=== PATIENT | female | born 1975 | race African-American/Black ===

== ENCOUNTER 2019-06-06 12:03 | Emergency (ER) | payer MEDICAID, MEDICARE ==
[~2019-06-06] VITALS: Ht 182.9 cm; Wt 90.0 kg
[2019-06-06 14:30] VITALS: BP 154/91
[2019-06-06] MEDS ORDERED: SODIUM CHLORIDE 0.9% 1,000 ML IV ONE (16:09)
[2019-06-06] MEDS ORDERED: ONDANSETRON HCL 4MG/2ML INJ IV ONE (16:15)
== END 2019-06-06 16:23 | disposition left against medical advice (07) ==
LOC: ER 12:03
DX: Z53.21 Procedure and treatment not carried out due to patient leaving prior to being seen by health care provider (principal)
CPT/HCPCS: J7030

== ENCOUNTER 2019-06-07 09:27 | Emergency (ER) | payer MEDICAID ==
[~2019-06-07] VITALS: Ht 180.3 cm; Wt 99.0 kg
[2019-06-07 10:46] LABS: BASOPHILS % 1.3 % (0.0-2.0); HEMATOCRIT. 29.6 % (36.0-48.0); HEMOGLOBIN. 9.9 g/dL (12.0-16.0); LYMPHOCYTES % 25.5 % (20.0-50.0); MEAN CORPUSCULAR HEMOGLOBIN 28.8 pg (28.0-32.0); MEAN CORPUSCULAR VOLUME 86.3 fL (81.0-99.0); MEAN PLATELET VOLUME 9.8 fl (7.4-10.4); MONOCYTES % 5.3 % (2.0-8.0); NEUTROPHILS % 64.9 % (40.0-76.0); PLATELET 268 x1000/uL (130-400); RED BLOOD CELL COUNT 3.43 mill/uL (4.2-5.4); RED CELL DISTRIBUTION WIDTH 14.2 % (11.6-14.6)
[2019-06-07 10:55] LABS: CHLORIDE 107 mEq/L (98-107)
[2019-06-07 11:05] LABS: B-HCG QUANTITATIVE < 1 mIU/mL (<3)
[2019-06-07 12:37] VITALS: BP 119/62
== END 2019-06-07 13:15 | disposition home or self-care (01) ==
LOC: ER 09:42
DX: O46.91 Antepartum hemorrhage, unspecified, first trimester (principal); O99.511 Diseases of the respiratory system complicating pregnancy, first trimester; Z3A.08 8 weeks gestation of pregnancy; Z88.1 Allergy status to other antibiotic agents
CPT/HCPCS: 36415; 76830; 76856; 81025; 84702; 86850; 86900; 99284